=== PATIENT | female | born 1950 | race Caucasian/White ===

== ENCOUNTER → 2017-11-23 | Outpatient (CLI) | payer OTHER | LOC: M.ULTRA 11:27 | DX: D25.9 Leiomyoma of uterus, unspecified (principal) ==

== ENCOUNTER → 2019-04-20 | Outpatient (CLI) | payer OTHER | LOC: M.RAD 10:48 | DX: Z12.31 Encounter for screening mammogram for malignant neoplasm of breast (principal) ==

== ENCOUNTER → 2020-09-27 | Outpatient (CLI) | payer OTHER | LOC: M.CT 08:36 | DX: M51.36 Other intervertebral disc degeneration, lumbar region (principal); M48.061 Spinal stenosis, lumbar region without neurogenic claudication; M25.78 Osteophyte, vertebrae ==

== ENCOUNTER → 2021-03-28 | Outpatient (CLI) | payer OTHER | LOC: M.MRI 08:30 | DX: M47.816 Spondylosis without myelopathy or radiculopathy, lumbar region (principal); M41.86 Other forms of scoliosis, lumbar region; M51.37 Other intervertebral disc degeneration, lumbosacral region; Z12.31 Encounter for screening mammogram for malignant neoplasm of breast ==